=== PATIENT | female | born 1960 | race Caucasian/White ===

== ENCOUNTER 2018-02-16 08:50 | Emergency (ER) | payer OTHER ==
[~2018-02-16] VITALS: Ht 162.6 cm; Wt 77.1 kg
[~2018-02-16 08:50] MED LIST: DOXYCYCLINE HY100 M2 PO
[2018-02-16 08:53] VITALS: BP 157/90
--- NOTE | 2018-02-16 09:31 | ED ANIMAL BITE/WOUND CHECK ---
History of Present Illness General Chief Complaint: Suture Removal/Wound Recheck Stated Complaint: WOUND CHECK Source: patient Exam Limitations: no limitations Vital Signs & Intake/Output Vital Signs & Intake/Output Vital Signs Date Time Temp Pulse Resp B/P B/P Pulse O2 O2 Flow FiO2 Mean Ox Delivery Rate 02/16 0853 98.4 62 18 157/90 98 Room Air Allergies Coded Allergies: Penicillins (Intermediate, HIVES 02/13/18) shrimp (Intermediate, HIVES, RASH 02/13/18) Reconcile Medications Doxycycline Hyclate 100 MG CAPSULE 1 CAP PO BID PREVENT WOUND INFECTION Triage Note: 57 YO FEMALE TO TRIAGE FOR RE-CHECK OF DOG BITE ON L HAND. REPORTS HAS STICHES IN [facility] BUT STATES TODAY IS JUST TO GET IT LOOKED IT. Triage Nurses Notes Reviewed? yes Onset: Last week Duration: day(s): Timing: recent history Injury Environment: home Is Injury an Animal Bite? Yes Animal Type: dog Context of Animal Attack: playing with animal Appearance of Animal: unknown Animal Immunization Status: up to date : No HPI: 57 year old female presents to the emergency department for recheck of her wound of her left hand. She was recently here and received stitches and antibiotic therapy for dog bite. Denies any fevers or chills no chest pain or shortness of breath she has had no recent redness or skin changes to the area of her hand. Tolerated antibiotics well as continuing to finish her course. She still has at least 5 or 6 more days of sutures before there removed. Past History Travel History Traveled to [place] past 21 day No Medical History Any Pertinent Medical History? none Neurological: NONE EENT: NONE Cardiovascular: hypertension, hyperlipidemia Respiratory: NONE Gastrointestinal: NONE Hepatic: NONE Renal: NONE Musculoskeletal: NONE Psychiatric: NONE Endocrine: NONE Blood Disorders: NONE Cancer(s): NONE Tetanus Vaccine: 02/13/18 Surgical History Surgical History: non-contributory Psychosocial History What is your primary language Turkish Tobacco Use: Never used Family History Hx Contributory? No Review of Systems Review of Systems Constitutional: Denies: no symptoms, see HPI, chills, diaphoresis, fever, malaise, weakness. EENTM: Denies: no symptoms. Respiratory: Denies: no symptoms. Cardiovascular: Denies: no symptoms. GI: Denies: no symptoms. Genitourinary: Denies: no symptoms, see HPI. Musculoskeletal: Denies: no symptoms, see HPI. Skin: Reports: change in skin color (improvement in her appearance.). Denies: see HPI. Neurological/Psychological: Denies: no symptoms. Hematologic/Endocrine: Denies: no symptoms. Immunologic/Allergic: Denies: no symptoms. All Other Systems: Reviewed and Negative Physical Exam Physical Exam General Appearance: well developed/nourished, no apparent distress, alert, awake , comfortable Head: atraumatic, normal appearance Eyes: Bilateral: normal appearance, PERRL. Ears, Nose, Throat: normal pharynx, normal ENT inspection Neck: normal inspection, supple, full range of motion Peripheral Pulses: 2+ brachial (R), 2+ brachial (L), 2+ radial (R), 2+ radial (L), 2+ ulnar (L) Extremities: evidence of injury Neurologic/Psych: awake, alert, oriented x 3 Skin: wound without any evidence of drainage. Good approximation. Sutures are still in place. No wound dehiscence. No cellulitic appearance. Progress Differential Diagnosis: dog bite. With wound check Plan of Care: Patient's wound is without any evidence of infection. She should continue to dress the wound as per previous. No evidence of any cellulitis. Continue oral antibiotic therapy as prescribed previously. She states return to the emergency department and another few days for a total of 10 days for suture removal. She is agreeable to this plan. Information regarding rabies at 32 previously been given to the patient. Departure Departure Disposition: HOME OR SELF CARE Condition: Stable Clinical Impression Primary Impression: Bite wound Referrals: Daren Moreno MD (PCP/Family) Departure Forms: Customer Survey General Discharge Information
== END 2018-02-16 10:10 ==
LOC: ERH 08:50
DX: Z48.00 Encounter for change or removal of nonsurgical wound dressing (principal)